=== PATIENT | female | born 1995 | race American Indian/Alaskan Native ===

== ENCOUNTER 2018-07-12 23:11 | Emergency (ER) | payer OTHER ==
[2018-07-13 05:47] VITALS: BP 115/66
[2018-07-13] MEDS ORDERED: IBUPROFEN PO ONE (07:17)
--- NOTE | 2018-07-13 07:56 | Emergency Department Report ---
ED Headache HPI - General Chief Complaint: Headache Stated Complaint: NUMBNESS ON SIDE OF FACE & HEADACHE Time Seen by Provider: 07/13/18 07:14 Source: patient, family - History of Present Illness Initial Comments: Upon ANISHA arrival to the emergency room this morning patient had been waiting approximately 8+ hours to be seen. Patient was intubated in [facility]. Became upset because of the wait, spoke to the charge nurse, and eventually left the emergency room. The patient was ambulatory, talking and without focal deficit. Allergies/Adverse Reactions: Allergies No Known Allergies Allergy (Verified 07/12/18 23:19) ED Review of Systems ROS: Stated complaint: NUMBNESS ON SIDE OF FACE & HEADACHE Other details as noted in HPI ED Past Medical Hx - Past Medical History Previous Medical History?: Yes Additional medical history: myocarditis - Surgical History Past Surgical History?: Yes Additional Surgical History: cardiac - Family History Family history: no significant - Social History Smoking Status: Never Smoker Substance Use Type: None ED Physical Exam - General Limitations: No Limitations ED Course Vital Signs 07/12/18 07/13/18 23:16 05:46 Temperature 97.9 F 98.8 F Pulse Rate 66 65 Respiratory 18 16 Rate Blood Pressure 126/67 Blood Pressure 115/66 [Left] O2 Sat by Pulse 100 100 Oximetry Critical care attestation.: If time is entered above; I have spent that time in minutes in the direct care of this critically ill patient, excluding procedure time. ED Disposition Clinical Impression: Headache Disposition: ELOPED Is pt being admited?: No Does the pt Need Aspirin: No Condition: Stable Referrals: MARCO ALLISON MD [Primary Care Provider] - 3-5 Days Time of Disposition: 08:00
== END 2018-07-13 08:00 | disposition left against medical advice (07) ==
LOC: ED 23:11
DX: R51 Headache (principal); R20.0 Anesthesia of skin; Z98.890 Other specified postprocedural states
CPT/HCPCS: 99281